=== PATIENT | male | born 1935 | race Caucasian/White ===

== ENCOUNTER 2016-09-22 14:20 | Emergency (ER) | payer MEDICARE, BC ==
[2016-09-22 14:40] LABS: BASOPHIL# 0.1 X 10^3uL (0.0-0.1); BASOPHILS 0.7 % (0.0-2.0); EOSINOPHILS 2.8 % (0.0-6.0); EOSINOPHILS# 0.3 X 10^3uL (0.0-0.4); HEMATOCRIT 58.7 % (42.0-54.0); HEMOGLOBIN 19.6 g/dL (14.0-18.0); LYMPHOCYTES 38.9 % (20.0-40.0); MEAN CELL VOLUME 90.3 fL (80.0-100.0); MEAN CORPUS. HGB CONCENTRATION 33.5 g/dL (32.0-36.0); MEAN CORPUSCULAR HEMOGLOBIN 30.2 pg (29.0-35.0); MEAN PLATELET VOLUME 9.5 fL (7.4-10.4); MONOCYTES 7.4 % (2.0-10.0); MONOCYTES# 0.8 X 10^3uL (0.2-1.0); NEUTROPHILS 50.2 % (54.0-75.0); PLATELET COUNT 265 X 10^3uL (130-440); WHITE BLOOD COUNT 10.3 X 10^3uL (3.9-10.7)
[2016-09-22 14:50] LABS: CHLORIDE 107 mmol/L (98-107); CREATININE 1.6 mg/dL (0.7-1.3); POTASSIUM 4.9 mmol/L (3.5-5.1); SODIUM 142 mmol/L (137-145)
[2016-09-22] MEDS ORDERED: FENTANYL 100 MCG/2 ML VIAL ONE (14:58)
[2016-09-22] MEDS ORDERED: LORazepam 2 MG/ML INJ ONE (14:58)
[2016-09-22 15:03] LABS: TROPONIN I 0.023 ng/mL (0.00-0.034)
[2016-09-22 15:04] LABS: GLUCOSE 324 mg/dL (70-100)
[2016-09-22] MEDS ORDERED: FUROSEMIDE 20 MG/2 ML VIAL ONE (15:05)
[2016-09-22 15:06] LABS: ARTERIAL BLOOD GAS PCO2 46.8 mmHg (35-45)
--- NOTE | 2016-09-22 15:07 | RADIOLOGY REPORT ---
HISTORY: Intubation. Shortness of breath. COMPARISON: None. FINDINGS: 1 view of the chest obtained. An endotracheal tube is well-positioned. Pacemaker leads are intact an d terminate in the right atrium and right ventricle. The heart size is within normal limits. There is diffuse hazy infiltrate throughout both lungs. No pneumothorax or pleural effusion is demonstrated. There appears to be a small calcified granuloma in the right lower lobe. The chest wall appears intac t. IMPRESSION: 1. Well-positioned endotracheal tube. 2. Diffuse bilateral pneumonitis, which may be infectious or inflammatory. This could also be caused by pulmonary edema, though there are no pleural effusions. Final Electronic Signature: This report was electronically signed by Tom Becerril MD on 09/22/2016 3:05 PM. [email or web address] /
[2016-09-22 15:08] LABS: BLOOD UREA NITROGEN 26 mg/dL (9-20)
--- NOTE | 2016-09-22 15:39 | ER NURSING DOCUMENTATION ---
Nurse's Notes [facility] Name:Santiago Donato Age:81 yrs Sex:Male :1935 Arrival Date:09/22/2016 Time:14:20 BedTrauma-A Private MD:Hugo García Diagnosis:Acute Respiratory Distress/Insufficiency Presentation: 09/22 14:21 Presenting complaint: EMS states: pt was found gasping for air with a pulse ox of 26%. st 14:21 Transition of care: Home. st 14:21 Method Of Arrival: EMS: 410 st 14:21 Care prior to arrival: CPAP. Compressions began at 14:35. st 14:22 Acuity: MEL 1 st Triage Assessment: 14:21 General: Appears pt struggling to breath fighting the CPAP.. st 14:21 Respiratory: the patient has severe shortness of breath. st 15:01 General: skin turning blue pulse OX dropping no pulse found.. st Historical: - Allergies: No known drug Allergies; meds inported pt un able to comunicate; - Home Meds: 1. Insulin: Novolog Sub-Q 2. carvedilol oral 3. Levemir subcutaneous 4. Aspirin Oral 5. Benicar oral 6. Hydralazine Oral 7. atorvastatin oral 8. Novolog Sub-Q 9. amlodipine oral 10. Furosemide Oral 11. Temazepam Oral 12. 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 Cardiac rhythm is PEA. st 14:40 CPR assessment: intubated, pulses have returned. st 14:40 General: helicopter called . st 15:04 General: family being contacted.. st 15:10 General: pt resting quietly on the vent.. st 15:25 Respiratory: Breath sounds with crackles air moving. st Vital Signs: 14:30 st 14:31 BP 149 / 82 (auto/); st 14:32 Pulse 102 MON; Resp 6; Pulse Ox 51% ; st 14:40 st 14:47 BP 219 / 121 (auto/); st 14:47 Pulse 109 MON; Resp 25; Pulse Ox 91% on ETT vent; st 14:50 st 14:59 BP 120 / 75 (auto/); st 15:02 Pulse 96 MON; Resp 12; Pulse Ox 89% ; st 15:26 Weight 80 kg; st 14:[address] 14:[address] 14:[address] 15:[address] ED Course: 14:21 Patient arrived in ED. ama 14:21 Hugo García MD is Private Physician. ama 14:[address] 14:28 Inserted peripheral IV: 20 gauge in right antecubital area. st 14:29 Inserted peripheral IV: 20 gauge in left antecubital area and blood collected. st 14:30 Intubation with 8.0 mm ETT. kr 14:30 Assist Provider Assist provider with intubation with 8.0 mm ETT. via oral route. Set up st intubation tray. Intubated by Giovanni Summers MD Placement verified by CXR, auscultating bilateral breath sounds. 14:31 EKG done per protocol. Performed by ED Staff. Shown to ED physician. st 14:35 Bisi Waggoner, RN is Primary Nurse. st 14:47 Giovanni Summers MD is Attending Physician. sc 14:[address] 14:52 ABG drawn. by RT. NGT inserted [address] 14:59 EKG attached lb 15:00 EKG done. (by ED staff). lb 15:11 Valuables sent with patient Patient has correct armband on for positive identification. st Placed in gown. 15:31 Assist ventilation with Ambu bag. kr 15:33 ABG's drawn from right radial artery, Ramon's test done and positive, direct pressure kr held for 5 minutes, no bleeding noted, pressure bandage applied, specimen sent. Intubation performed by: Giovanni Summers MD Ventilated with 100% BVM prior to procedure. O2 saturation prior to procedure was 51 %. Administered Medications: 14:35 Drug: EPINEPHrine 1:10,000 1 mg; Route: IVP; Site: right antecubital; st 15:23 Follow up: Response: PULSES BACK st 14:49 Drug: fentaNYL (PF) 50 mcg; Route: IVP; Site: left hand; st 15:23 Follow up: Response: No adverse reaction st 14:50 Drug: Ativan 1 mg; Route: IVP; Site: left hand; st 15:23 Follow up: Response: No adverse reaction st 14:50 Drug: Rocuronium 80 mg; Route: IVP; Site: left wrist; st 15:24 Follow up: Response: PT SEDATED. st 14:52 Drug: Lasix 20 mg; Route: IVP; Site: right antecubital; st 15:23 Follow up: Response: No adverse reaction st Output: 15:24 Urine: 30ml (Osuna); Total: 30ml. st Outcome: 15:11 ER care complete, transfer ordered by ar 15:18 Transferred: Patient will be transferred to: [facility]. Patient's st face sheet was faxed to accepting facility. Face Sheet included patient's name, address, age, gender, contact information and insurance information. Patient will be transported by: [facility] Helicopter. Nurse and Physician Charting and Notes were sent to Accepting Facility. All tests and/or procedures with results, if applicable, were sent to accepting facility. 15:18 Report given to Given to flight crew. 15:33 Transferred: st 15:33 Condition: Guarded 15:33 Report given to [place] [facility] 15:33 Instructed on need to admit 15:39 Patient [address] the ED. st Signatures: Bisi Waggoner, RN Giovanni Lomas MD MD sc Averdick, Andrew, Reg Reg Neena Bruce Lynda lb
--- NOTE | 2016-09-22 15:39 | ER PHYSICIAN DOCUMENTATION ---
Physician Documentation [facility] Name:Santiago Donato Age:81 yrs Sex:Male :1935 Arrival Date:09/22/2016 Time:14:20 BedTrauma-A Private MD:Hugo García ED, Scott Disposition: 09/22 15:10 Critical Care:. sc Disposition: 09/22/16 15:11 Transfer ordered to [facility]. Diagnosis is Acute Respiratory Distress/Insufficiency. - Reason for transfer: Higher level of care. - Accepting physician is Dr. Rudolph. - Condition is Critical. - Problem is new. - Symptoms have improved. COBRA Form completed? Yes Transfer - Mode of Transportation Helicopter HPI: 14:55 This 81 yrs old Male presents to ER via EMS with complaints of Respiratory sc Distress. 14:55 The patient has shortness of breath at rest. Onset: The symptom(s)/episode sc began/occurred at an unknown time. Associated signs and symptoms: Pertinent positives:. Unable to obtain HPI due to baseline dementia, obtunded state, patient distress, patient's speech is incomprehensible. Historical: - Allergies: No known drug Allergies; meds inported pt un able to comunicate; - Home Meds: 1. Insulin: Novolog Sub-Q 2. carvedilol oral 3. Levemir subcutaneous 4. Aspirin Oral 5. Benicar oral 6. Hydralazine Oral 7. atorvastatin oral 8. Novolog Sub-Q 9. amlodipine oral 10. Furosemide Oral 11. Temazepam Oral 12. 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 sc 14:56 Unable to obtain ROS due to baseline dementia, obtunded state, patient distress. Exam: 14:56 Constitutional: The patient appears in obvious distress, severely distressed. sc 14:56 Head/face: Exam is negative for acute changes. 14:56 Eyes: Pupils: equal, round, and reactive to light and accomodation. 14:56 Cardiovascular: Rate: tachycardic, Rhythm: regular, Pulses: Pulses are 2+ in right radial artery and left radial artery. 14:56 Respiratory: severe respiratory distress is noted, Respirations: accessory muscle usage, grunting, shallow respirations, tachypnea, Breath sounds: rales, that are severe, are located in both bases. 14:56 Abdomen/GI: Inspection: abdomen appears normal. 14:56 Back: Exam negative for acute changes. 14:56 Musculoskeletal/extremity: Exam is negative for acute changes. 14:56 Skin: Appearance: Color: pale, diaphoresis is noted. 14:56 Neuro: Orientation: unable to test, the patient is intubated, Mentation: confused, fighting O2 mask on arrival. 14:56 Unable to obtain exam due to patient distress. Vital Signs: 14:30 st 14:31 BP 149 / 82 (auto/); st 14:32 Pulse 102 MON; Resp 6; Pulse Ox 51% ; st 14:40 st 14:47 BP 219 / 121 (auto/); st 14:47 Pulse 109 MON; Resp 25; Pulse Ox 91% on ETT vent; st 14:50 st 14:59 BP 120 / 75 (auto/); st 15:02 Pulse 96 MON; Resp 12; Pulse Ox 89% ; st 15:26 Weight 80 kg; st 14:[address] 14:[address] 14:[address] 15:[address] Procedures: 15:05 CPR: See CPR flow sheet. Initial patient assessment: unresponsive, cyanotic, The sc presenting cardiac rhythm is PEA. the patient was intubated prior to arrival, Meds given: Epinephrine X 1, Pacing: the patient was paced with patient with pacer. Intubation: Ventilated with 100% NRB prior to procedure. O2 saturation prior to procedure was 30 %. Intubated orally using # 4 Muñoz blade with 8.0 mm ETT. Successful on second attempt. Ventilated with Ambu bag. ventilator. Cricoid pressure applied during procedure. Tube secured with ETT parks Placement verified by CXR, CO2 detector with (+) color change, auscultating bilateral breath sounds, O2 saturation after procedure was 90 %. MDM: 14:47 Patient medically screened. sc 14:59 EKG attached lb 15:09 Differential diagnosis: CHF exacerbation, Myocardial Infarction pulmonary edema. sc Antibiotic administration: Not indicated. Data reviewed: vital signs, nurses notes, old medical records, lab test result(s), EKG, radiologic studies, plain films, and as a result, I will *Transfer Patient. Data interpreted: Pulse oximetry: on ventilator. ECG:. Response to treatment: the patient's symptoms have mildly improved after treatment. 15:11 Physician consultation: Dr. Rudolph was called at 15:12, was contacted at 15:12, ut regarding patient's condition, after a discussion of the case, a recommendation for transfer for higher level of care is made. 09/22 14:48 Order name: CBC AUTO DIF, MDIF/RMOR IF IND EDIA 09/22 15:06 Order name: BASIC METABOLIC PANEL; Complete Time: 15:36 EDMS 09/22 15:36 Interpretation: Abnormal: GLUCOSE 324; CREATININE 1.6. ut 09/22 15:06 Order name: BNP,NT-PRO; Complete Time: 15:36 EDMS 09/22 15:36 Interpretation: Abnormal: BNP,NT-PRO 957. ut 09/22 15:06 Order name: TROPONIN I; Complete Time: 15:36 EDMS 09/22 15:36 Interpretation: Normal: Normal. ut 09/22 15:07 Order name: ARTERIAL BLOOD GAS; Complete Time: 15:13 EDMS / 15:36 Interpretation: Abnormal: ARTERIAL BLOOD GAS, pH ONLY 7.08. ut 09/22 15:31 Order name: DDIMER; Complete Time: 15:36 EDMS 09/22 15:36 Interpretation: Abnormal. ut 09/22 15:08 Order name: CHEST; SINGLE VIEW [address]; Complete Time: 15:13 EDIA / 15:36 Interpretation: Abnormal: Abnormal. ut 09/22 14:48 Order name: EKG - 12 Lead; Complete Time: 15:00 st 09/22 14:51 Order name: Osuna; Complete Time: 14:59 st 09/22 14:51 Order name: NG Tube; Complete Time: 15:00 st EC:09 Rate is 120 beats/min. Rhythm is regular with Left bundle branch block. QRS [place] is ut Normal. [place] interval is normal. QRS interval is prolonged. No Q waves. T waves are Normal. No ST changes noted. Clinical impression: Abnormal EKG without significant change. Interpreted by me. Reviewed by me. Dispensed Medications: 14:35 Drug: EPINEPHrine 1:10,000 1 mg; Route: IVP; Site: right antecubital; st 15:23 Follow up: Response: PULSES BACK st 14:49 Drug: fentaNYL (PF) 50 mcg; Route: IVP; Site: left hand; st 15:23 Follow up: Response: No adverse reaction st 14:50 Drug: Ativan 1 mg; Route: IVP; Site: left hand; st 15:23 Follow up: Response: No adverse reaction st 14:50 Drug: Rocuronium 80 mg; Route: IVP; Site: left wrist; st 15:24 Follow up: Response: PT SEDATED. st 14:52 Drug: Lasix 20 mg; Route: IVP; Site: right antecubital; st 15:23 Follow up: Response: No adverse reaction st Critical care time excluding procedures: 15:10 Critical care time: Bedside Care: 45 minutes, Consultation: 15 minutes. Total time: 60 sc minutes Signatures: Bisi Waggoner RN RN st Chew, Scott, MD MD sc Bollock, Lynda lb
== END 2016-09-22 15:39 | disposition short-term general hospital (02) ==
LOC: ER 14:20
DX: J80 Acute respiratory distress syndrome (principal); R00.0 Tachycardia, unspecified; R09.89 Other specified symptoms and signs involving the circulatory and respiratory systems; R61 Generalized hyperhidrosis; R41.0 Disorientation, unspecified; F03.90 Unspecified dementia, unspecified severity, without behavioral disturbance, psychotic disturbance, mood disturbance, and anxiety; I44.7 Left bundle-branch block, unspecified; R79.1 Abnormal coagulation profile; E11.65 Type 2 diabetes mellitus with hyperglycemia; N18.3 Chronic kidney disease, stage 3 (moderate); I10 Essential (primary) hypertension; Z79.4 Long term (current) use of insulin; Z79.899 Other long term (current) drug therapy; Z95.0 Presence of cardiac pacemaker
CPT/HCPCS: 31500; 43753; 71010; 80048; 82803; 83880; 84484; 85025; 85379; 92950; 93005; 96374; 96375; 99291; A0420; A0425; A0427; J1940; J2060; J3010

== ENCOUNTER 2016-10-08 13:48 | Inpatient (IN) | payer MEDICARE, BC ==
[2016-10-08] MEDS ORDERED: MAGNESIUM HYDROXIDE 30 ML UDC PO PRN (15:49)
[2016-10-08] MEDS ORDERED: GLYCERIN ADULT 2 GM SUPP.RECT PR PRN (15:49)
[2016-10-08] MEDS ORDERED: POLYETHYLENE GLYCOL 3350 17 GM POWD.PACK PO PRN (15:49)
[2016-10-08] MEDS ORDERED: ACETAMINOPHEN 325 MG TABLET PO PRN (15:49)
[2016-10-08] MEDS ORDERED: HOME MEDICATION LIST NEEDED 1 EA EACH MC ONE (15:49)
[2016-10-08] MEDS ORDERED: GLYCERIN ADULT 2 GM SUPP.RECT RECTAL PRN (18:24)
[2016-10-08] MEDS ORDERED: DEXTROSE 50% WATER 25 GM/50 ML SYR IV PRN (19:25)
[2016-10-08] MEDS ORDERED: traMADol HCL 50 MG TABLET PO PRN (19:26)
[2016-10-08] MEDS ORDERED: INSULIN GLARGINE,HUM.REC.ANLOG 100 UNITS/ML ML SUBCUT SCH ×2 (21:00→22:14)
[2016-10-08] MEDS ORDERED: hydrALAZINE HCL 20 MG/ML VIAL PO SCH (21:00)
[2016-10-08] MEDS ORDERED: cloNIDine HCL 0.1 MG TABLET PO SCH (21:00)
[2016-10-08] MEDS: CARVEDILOL 12.5 MG TABLET PO SCH (22:24)
[2016-10-08] MEDS: ATORVASTATIN CALCIUIM 40 MG TABLET PO SCH (22:24)
[2016-10-08] MEDS: INSULIN LISPRO 100 UNIT/ML ML SUBCUT SCH (22:25)
[2016-10-08 23:31] LABS: URINE MUCUS NONE SEEN (Up to 25%); URINE SQUAMOUS EPITHELIAL CELL NONE SEEN (<= 15/hpf)
[2016-10-08 23:33] LABS: URINE APPEARANCE CLEAR; URINE BILIRUBIN NEGATIVE (NEGATIVE); URINE BLOOD 10 Ery/uL (1+) (NEGATIVE); URINE COLOR YELLOW; URINE GLUCOSE 500mg/dL (2+) (NEGATIVE); URINE KETONE NEGATIVE (NEGATIVE); URINE LEUKOCYTE ESTERASE NEGATIVE (NEGATIVE); URINE NITRITE NEGATIVE (NEGATIVE); URINE PROTEIN 100mg/dL (2+) (NEG - TRACE); URINE RBC 0-5/hpf (0-5/hpf); URINE SPECIFIC GRAVITY 1.015 (0.001-1.035); URINE UROBILINOGEN 0.2mg/dL (Normal) (NEG-1mg/dL)
[2016-10-08 23:34] LABS: URINE BACTERIA NONE SEEN (<10/hpf); URINE WBC 0-4/hpf (0-4/hpf)
[2016-10-09] MEDS ORDERED: ONDANSETRON ODT 8 MG TAB.RAPDIS PO ONE (00:01)
[2016-10-09] MEDS ORDERED: ONDANSETRON ODT 4 MG TAB.RAPDIS ONE (00:17)
[2016-10-09] MEDS ORDERED: ONDANSETRON HCL 4 MG/2 ML VIAL IV PRN (00:20)
[2016-10-09] MEDS ORDERED: ONDANSETRON HCL 4 MG/2 ML VIAL ONE (00:24)
[2016-10-09 06:41] LABS: BASOPHIL# 0.2 X 10^3uL (0.0-0.1); BASOPHILS 1.7 % (0.0-2.0); EOSINOPHILS 0.4 % (0.0-6.0); HEMATOCRIT 26.9 % (42.0-54.0); HEMOGLOBIN 9.1 g/dL (14.0-18.0); LYMPHOCYTES 6.3 % (20.0-40.0); LYMPHOCYTES# 0.6 X 10^3uL (0.8-3.8); MEAN CELL VOLUME 86.7 fL (80.0-100.0); MEAN CORPUS. HGB CONCENTRATION 33.7 g/dL (32.0-36.0); MEAN CORPUSCULAR HEMOGLOBIN 29.2 pg (29.0-35.0); MEAN PLATELET VOLUME 9.5 fL (7.4-10.4); MONOCYTES 9.3 % (2.0-10.0); MONOCYTES# 0.8 X 10^3uL (0.2-1.0); NEUTROPHILS 82.3 % (54.0-75.0); NEUTROPHILS# 7.4 X 10^3uL (2.6-6.7); PLATELET COUNT 301 X 10^3uL (130-440); RED CELL DISTRIBUTION WIDTH 12.4 % (11.5-14.5)
[2016-10-09] MEDS: INSULIN LISPRO 100 UNIT/ML ML SUBCUT SCH ×4 (06:47→21:41)
[2016-10-09 06:53] LABS: ALKALINE PHOSPHATASE 96 U/L (38-126); ALT 41 U/L (21-72); AST 36 U/L (17-59); BILIRUBIN, TOTAL 0.7 mg/dL (0.2-1.3); BLOOD UREA NITROGEN 40 mg/dL (9-20); CALCIUM 9.7 mg/dL (8.4-10.2); CHLORIDE 103 mmol/L (98-107); POTASSIUM 4.6 mmol/L (3.5-5.1); SODIUM 133 mmol/L (137-145); TOTAL PROTEIN 6.1 g/dL (6.3-8.2)
[2016-10-09 06:58] LABS: GLUCOSE 222 mg/dL (70-100)
--- NOTE | 2016-10-09 07:49 | HISTORY & PHYSICAL ---
DATE OF ADMISSION: 10/08/16 ATTENDING PHYSICIAN: Yarely Draper MD HISTORY OF PRESENT ILLNESS: This patient came through our hospital on the date of 09/22/16 with respiratory distress. This was severe requiring intubation for pulmonary edema. He actually endured a brief episode of PEA and survived CPR and a single dose of epinephrine. The etiology of his pulmonary edema is though to be his very labile blood pressure. He was diuresed, extubated, monitored and has done relatively well. He is now being admitted to our swing bed program for strengthening and further monitoring. PAST MEDICAL HISTORY 1. Hematuria. 2. Prostate cancer. 3. Carotid stenosis. 4. Complete heart block. 5. Chronic renal insufficiency with a creatinine of 1.4 at baseline. 6. Type 2 diabetes. 7. Hyperlipidemia. 8. Hypertension. 9. Insomnia. 10. Restless legs. 11. Obstructive sleep apnea requiring CPAP. PAST SURGICAL HISTORY 1. Transurethral resection of the prostate. SOCIAL HISTORY: He quit smoking many years ago. He typically lives a lone. He has daughters involved in his life. He occasionally drinks alcohol but not every night. FAMILY HISTORY: Adopted so family history is not known. MEDICATIONS AT ADMISSION Amlodipine 10 mg p.o. daily. Olmesartan 20 mg p.o. daily. Long-acting insulin 24 units at h.s. Short-acting insulin at meals, variable dosing. Hydralazine 25 mg p.o. b.i.d. Inspra 25 mg p.o. daily. CPAP. Clonidine 0.3 mg patches to be changed once weekly. Vitamin D 1000 units daily. Chlorthalidone 12.5 mg p.o. daily. Carvedilol 25 mg p.o. daily. Atorvastatin 40 mg p.o. daily. Aspirin of an 81 mg enteric coated aspirin daily. Allopurinol 200 mg p.o. daily. ALLERGIES: No known drug allergies. CODE STATUS: We did discuss his code status, and he will remain a full code. PHYSICAL EXAMINATION VITAL SIGNS: Afebrile with a blood pressure of 132/81, pulse 63 requiring 3 liters of oxygen for a pulse oxygenation of 92%. GENERAL: He is a pleasant older gentleman in no acute distress. He is very articulate. He does not remember some of the events surrounding his resuscitation not surprisingly, but his daughters say that he is very much himself. He is complaining of anterior chest pain related to CPR. Tylenol has not been serving him very well down at [facility]. CARDIAC: Regular rate and rhythm. CHEST: Remarkable for a few rales at the bases. ABDOMEN: Soft and nontender. EXTREMITIES: Without edema. Negative Homans sign. ASSESSMENT AND PLAN 1. Recent cardiac arrest and respiratory failure, from which he has recovered markedly well. Control of his blood pressure will be very important, and will be monitored closely and treated accordingly. 2. Chronic renal insufficiency. We will monitor labs. His creatinine never seemed to get any higher than 1.6 down at [facility]. 3. Type 2 diabetes. We will continue the program recommended by [facility] and follow blood sugars, adjusting as needed. 4. Complete heart block with pacemaker. 5. Resuscitation status. Full code. MTDD
--- NOTE | 2016-10-09 08:40 | PROGRESS NOTE: IM APSO ---
Assessment and Plan - Date of Encounter Date of Encounter: 10/09/16 (1) Hypertension Status: Chronic Assessment and plan: Difficult to control but presently doing fine, will continue present regimen. Current Visit: Yes (2) History of pulmonary edema Status: Resolved Assessment and plan: It is assumed his resp'y failure was r/t pulmonary edema d/t severe HTN; no sign of recurrence. Pt would like O2 at home at d/c if he at all qualifies. Current Visit: Yes (3) DM2 (diabetes mellitus, type 2) Status: Chronic Assessment and plan: Glc elevated since arrival, but he is just getting settled. I incr Lantus a little, monitor and adjust routine meds as indicated. Current Visit: Yes (4) Nausea Status: Acute Assessment and plan: Intermittent nausea for unclear reasons, wanted stronger pain med for his sternal pain from CPR, but maybe contrib. Can take Zofran with Tramadol, will make sure he is on PPI. Current Visit: Yes - Time Spent With Patient Total time spent with greater than 50% in coordination of care (as documented) at patient's floor/unit and/or counseling patient: IM: PN Subjective General: fatigue Cardiovascular: chest pain (from CPR) Respiratory: cough (minimal) Gastrointestinal: nausea (at times, was happening at MCR also, unclear if from meds or new tramadol) Neurological: no headache IM: PN Objective Exam - I&O/Vital Signs I&O: Intake & Output 10/08/16 10/09/16 10/09/16 21:59 05:59 13:59 Intake Total 975 Output Total 525 Balance 450 Weight 81 kg Intake: Oral 975 Output: Urine 525 Other: Urine Appearance Clear Clear Urine Color Yellow Yellow Voiding Method Toilet Toilet # Voids 3 Vital Signs: Last Vital Signs Temp 37.2 C 10/09/16 05:52 Pulse 60 10/09/16 02:35 Resp 22 10/09/16 05:52 BP 118/50 10/09/16 05:52 Pulse Ox 93 10/09/16 05:52 Oxygen Flow Rate 2 Oxygen Delivery Method Nasal Cannula - Constitutional General appearance: Present: average body habitus - ENT ENT exam: Present: mucous membranes moist - Respiratory Respiratory exam: Present: chest wall tenderness (anteriorly), clear - Cardiovascular Cardiovascular exam: Present: RRR - GI/Abdominal GI/Abdominal exam: Present: distended, soft - Extremities Exam Extremities exam: Absent: edema - Neurological Exam Neurological exam: Present: oriented X3 - Psychiatric Psychiatric exam: Present: normal affect - Skin Skin exam: Present: pallor - Lab Labs: Laboratory Last Values WBC 9.0 X 10^3uL (3.9-10.7) 10/09/16 06:00 RBC 3.10 X 10^6uL (4.20-6.10) L 10/09/16 06:00 Hgb 9.1 g/dL (14.0-18.0) L 10/09/16 06:00 Hct 26.9 % (42.0-54.0) L 10/09/16 06:00 MCV 86.7 fL (80.0-100.0) 10/09/16 06:00 MCH 29.2 pg (29.0-35.0) 10/09/16 06:00 MCHC 33.7 g/dL (32.0-36.0) 10/09/16 06:00 RDW 12.4 % (11.5-14.5) 10/09/16 06:00 Plt Count 301 X 10^3uL (130-440) 10/09/16 06:00 MPV 9.5 fL (7.4-10.4) 10/09/16 06:00 Neutrophils % 82.3 % (54.0-75.0) H 10/09/16 06:00 Lymphocytes % 6.3 % (20.0-40.0) L 10/09/16 06:00 Eosinophils % 0.4 % (0.0-6.0) 10/09/16 06:00 Basophils % 1.7 % (0.0-2.0) 10/09/16 06:00 Neutrophils # 7.4 X 10^3uL (2.6-6.7) H 10/09/16 06:00 Lymphocytes # 0.6 X 10^3uL (0.8-3.8) L 10/09/16 06:00 Monocytes 9.3 % (2.0-10.0) 10/09/16 06:00 Monocytes # 0.8 X 10^3uL (0.2-1.0) 10/09/16 06:00 Eosinophils # 0.0 X 10^3uL (0.0-0.4) 10/09/16 06:00 Basophils # 0.2 X 10^3uL (0.0-0.1) H 10/09/16 06:00 Sodium 133 mmol/L (137-145) L D 10/09/16 06:00 Potassium 4.6 mmol/L (3.5-5.1) 10/09/16 06:00 Chloride 103 mmol/L (98-107) 10/09/16 06:00 Carbon Dioxide 25 mmol/L (22-30) 10/09/16 06:00 BUN 40 mg/dL (9-20) H D 10/09/16 06:00 Creatinine 1.7 mg/dL (0.7-1.3) H 10/09/16 06:00 GFR Calculation Not Reportable 10/09/16 06:00 Glucose 222 mg/dL (70-100) H 10/09/16 06:00 Calcium 9.7 mg/dL (8.4-10.2) 10/09/16 06:00 Total Bilirubin 0.7 mg/dL (0.2-1.3) 10/09/16 06:00 AST 36 U/L (17-59) 10/09/16 06:00 ALT 41 U/L (21-72) 10/09/16 06:00 Alkaline Phosphatase 96 U/L (38-126) 10/09/16 06:00 Total Protein 6.1 g/dL (6.3-8.2) L 10/09/16 06:00 Albumin 3.0 g/dL (3.5-5.0) L 10/09/16 06:00 Albumin/Globulin Ratio 1.0 10/09/16 06:00 Urine Color Yellow 10/08/16 22:40 Urine Appearance Clear 10/08/16 22:40 Urine pH 6.0 (5-7) 10/08/16 22:40 Ur Specific [place] 1.015 (0.001-1.035) 10/08/16 22:40 Urine Protein 100mg/dl (2+) (NEG - TRACE) A 10/08/16 22:40 Urine Ketones Negative (NEGATIVE) 10/08/16 22:40 Urine Blood 10 alejandro/ul (1+) (NEGATIVE) A 10/08/16 22:40 Urine Nitrate Negative (NEGATIVE) 10/08/16 22:40 Urine Bilirubin Negative (NEGATIVE) 10/08/16 22:40 Urine Urobilinogen 0.2mg/dl (normal) (NEG-1mg/dL) 10/08/16 22:40 Ur Leukocyte Esterase Negative (NEGATIVE) 10/08/16 22:40 Urine RBC 0-5/hpf (0-5/hpf) 10/08/16 22:40 Urine WBC 0-4/hpf (0-4/hpf) 10/08/16 22:40 Ur Squamous Epith Cells None seen (<= 15/hpf) 10/08/16 22:40 Urine Bacteria None seen (<10/hpf) 10/08/16 22:40 Urine Mucus None seen (Up to 25%) 10/08/16 22:40 Urine Glucose 500mg/dl (2+) (NEGATIVE) A 10/08/16 22:40 Quality Questions - VTE Prophylaxis Assessment VTE Present on Admission?: No Patient at risk for venous thromboembolism?: Yes VTE Risk Level: Moderate Risk Pharmaceutical VTE prophylaxis contraindication reason: contraindicated (recent CPR and low hct) Mechanical VTE prophylaxis contraindication reason: N/A- VTE prophylaxsis ordered
[2016-10-09] MEDS: ALLOPURINOL 100 MG TAB PO SCH (08:56)
[2016-10-09] MEDS: CHOLECALCIFEROL 1,000 UNIT CAPSULE PO SCH (08:56)
[2016-10-09] MEDS ORDERED: AMLODIPINE BESYLATE 5 MG TABLET PO SCH (09:00)
[2016-10-09] MEDS ORDERED: OLMESARTAN 20 MG TABLET PO SCH ×2 (09:00→22:01)
[2016-10-09] MEDS: CARVEDILOL 12.5 MG TABLET PO SCH ×2 (09:01→17:15)
[2016-10-09] MEDS: CHLORTHALIDONE 12.5 MG PO SCH (09:01)
[2016-10-09] MEDS: PANTOPRAZOLE 40 MG TABLET PO SCH ×2 (11:47→16:50)
[2016-10-09] MEDS: INSULIN GLARGINE,HUM.REC.ANLOG 100 UNITS/ML ML SUBCUT SCH (21:30)
[2016-10-09] MEDS: ATORVASTATIN CALCIUIM 40 MG TABLET PO SCH (21:30)
[2016-10-10 06:27] LABS: BASOPHIL# 0.1 X 10^3uL (0.0-0.1); BASOPHILS 1.1 % (0.0-2.0); EOSINOPHILS 5.4 % (0.0-6.0); EOSINOPHILS# 0.3 X 10^3uL (0.0-0.4); HEMATOCRIT 26.6 % (42.0-54.0); HEMOGLOBIN 8.9 g/dL (14.0-18.0); LYMPHOCYTES 16.2 % (20.0-40.0); LYMPHOCYTES# 0.8 X 10^3uL (0.8-3.8); MEAN CELL VOLUME 87.6 fL (80.0-100.0); MEAN CORPUS. HGB CONCENTRATION 33.6 g/dL (32.0-36.0); MEAN CORPUSCULAR HEMOGLOBIN 29.4 pg (29.0-35.0); MEAN PLATELET VOLUME 8.5 fL (7.4-10.4); MONOCYTES# 0.8 X 10^3uL (0.2-1.0); NEUTROPHILS 62.1 % (54.0-75.0); NEUTROPHILS# 3.2 X 10^3uL (2.6-6.7); PLATELET COUNT 333 X 10^3uL (130-440); RED BLOOD COUNT 3.04 X 10^6uL (4.20-6.10); RED CELL DISTRIBUTION WIDTH 12.8 % (11.5-14.5); WHITE BLOOD COUNT 5.2 X 10^3uL (3.9-10.7)
[2016-10-10 06:41] LABS: BLOOD UREA NITROGEN 45 mg/dL (9-20); CALCIUM 9.5 mg/dL (8.4-10.2); CHLORIDE 104 mmol/L (98-107); GLUCOSE 148 mg/dL (70-100); POTASSIUM 4.2 mmol/L (3.5-5.1); SODIUM 135 mmol/L (137-145)
[2016-10-10 06:42] LABS: MONOCYTES 15.2 % (2.0-10.0)
[2016-10-10] MEDS: PANTOPRAZOLE 40 MG TABLET PO SCH ×2 (06:46→16:37)
[2016-10-10] MEDS: INSULIN LISPRO 100 UNIT/ML ML SUBCUT SCH ×4 (06:50→22:11)
[2016-10-10] MEDS: CARVEDILOL 12.5 MG TABLET PO SCH ×2 (07:57→17:04)
[2016-10-10] MEDS: ALLOPURINOL 100 MG TAB PO SCH (09:39)
[2016-10-10] MEDS: CHOLECALCIFEROL 1,000 UNIT CAPSULE PO SCH (09:39)
[2016-10-10] MEDS: CHLORTHALIDONE 12.5 MG PO SCH (10:05)
[2016-10-10] MEDS: AMLODIPINE BESYLATE 5 MG TABLET PO SCH (10:19)
--- NOTE | 2016-10-10 13:11 | PROGRESS NOTE: IM APSO ---
Assessment and Plan - Date of Encounter Date of Encounter: 10/10/16 (1) Pulmonary edema Status: Acute Assessment and plan: Stable with no evidence of flare. Cardiology consult Current Visit: Yes (2) Hypertension Status: Chronic Assessment and plan: Labile, possible etiology for pulm edema Amlodipine, hydralazine, clonidine patch, chlorthalidione, carvedilol, inspra, olmesartan. Will try to taper off as many as possible. Cardiology consult. Current Visit: Yes (3) DM2 (diabetes mellitus, type 2) Status: Chronic Assessment and plan: Insulin Current Visit: Yes (4) CRF Status: Acute Assessment and plan: Stable Current Visit: Yes (5) Complete heart block with pacemaker Status: Acute Current Visit: Yes (6) Anemia Status: Acute Assessment and plan: Consider bld transfusion tomorrow Current Visit: Yes - Time Spent With Patient Total time spent with greater than 50% in coordination of care (as documented) at patient's floor/unit and/or counseling patient: IM: PN Subjective Cardiovascular: other (Sternal chest wall pain from CPR), no chest pain Respiratory: no cough Gastrointestinal: no nausea Musculoskeletal: other (generalized weakness improving with PT) Neurological: no headache IM: PN Objective Exam - I&O/Vital Signs I&O: Intake & Output 10/09/16 10/10/16 10/10/16 21:59 05:59 13:59 Intake Total 150 Output Total 400 225 Balance -400 -75 Intake: Oral 150 Output: Urine 400 225 Other: Urine Appearance Clear Clear Urine Color Yellow Straw Voiding Method Toilet Toilet # Voids 2 1 Vital Signs: Last Vital Signs Temp 36.8 C 10/10/16 06:48 Pulse 60 10/10/16 06:48 Resp 22 10/10/16 06:48 BP 110/47 10/10/16 06:48 Pulse Ox 93 10/10/16 06:48 Oxygen Flow Rate 2 Oxygen Delivery Method Nasal Cannula - Respiratory Respiratory exam: Present: chest wall tenderness (anteriorly), clear - Cardiovascular Cardiovascular exam: Present: RRR - GI/Abdominal GI/Abdominal exam: Present: soft. Absent: tenderness - Extremities Exam Extremities exam: Absent: edema - Lab Labs: Laboratory Last Values WBC 5.2 X 10^3uL (3.9-10.7) 10/10/16 06:20 RBC 3.04 X 10^6uL (4.20-6.10) L 10/10/16 06:20 Hgb 8.9 g/dL (14.0-18.0) L 10/10/16 06:20 Hct 26.6 % (42.0-54.0) L 10/10/16 06:20 MCV 87.6 fL (80.0-100.0) 10/10/16 06:20 MCH 29.4 pg (29.0-35.0) 10/10/16 06:20 MCHC 33.6 g/dL (32.0-36.0) 10/10/16 06:20 RDW 12.8 % (11.5-14.5) 10/10/16 06:20 Plt Count 333 X 10^3uL (130-440) 10/10/16 06:20 MPV 8.5 fL (7.4-10.4) 10/10/16 06:20 Neutrophils % 62.1 % (54.0-75.0) 10/10/16 06:20 Lymphocytes % 16.2 % (20.0-40.0) L 10/10/16 06:20 Eosinophils % 5.4 % (0.0-6.0) 10/10/16 06:20 Basophils % 1.1 % (0.0-2.0) 10/10/16 06:20 Neutrophils # 3.2 X 10^3uL (2.6-6.7) 10/10/16 06:20 Lymphocytes # 0.8 X 10^3uL (0.8-3.8) 10/10/16 06:20 Monocytes 15.2 % (2.0-10.0) H 10/10/16 06:20 Monocytes # 0.8 X 10^3uL (0.2-1.0) 10/10/16 06:20 Eosinophils # 0.3 X 10^3uL (0.0-0.4) 10/10/16 06:20 Basophils # 0.1 X 10^3uL (0.0-0.1) 10/10/16 06:20 Sodium 135 mmol/L (137-145) L 10/10/16 06:20 Potassium 4.2 mmol/L (3.5-5.1) 10/10/16 06:20 Chloride 104 mmol/L (98-107) 10/10/16 06:20 Carbon Dioxide 27 mmol/L (22-30) 10/10/16 06:20 BUN 45 mg/dL (9-20) H 10/10/16 06:20 Creatinine 1.9 mg/dL (0.7-1.3) H 10/10/16 06:20 GFR Calculation Not Reportable 10/10/16 06:20 Glucose 148 mg/dL (70-100) H 10/10/16 06:20 Calcium 9.5 mg/dL (8.4-10.2) 10/10/16 06:20 Total Bilirubin 0.7 mg/dL (0.2-1.3) 10/09/16 06:00 AST 36 U/L (17-59) 10/09/16 06:00 ALT 41 U/L (21-72) 10/09/16 06:00 Alkaline Phosphatase 96 U/L (38-126) 10/09/16 06:00 Total Protein 6.1 g/dL (6.3-8.2) L 10/09/16 06:00 Albumin 3.0 g/dL (3.5-5.0) L 10/09/16 06:00 Albumin/Globulin Ratio 1.0 10/09/16 06:00 Urine Color Yellow 10/08/16 22:40 Urine Appearance Clear 10/08/16 22:40 Urine pH 6.0 (5-7) 10/08/16 22:40 Ur Specific [place] 1.015 (0.001-1.035) 10/08/16 22:40 Urine Protein 100mg/dl (2+) (NEG - TRACE) A 10/08/16 22:40 Urine Ketones Negative (NEGATIVE) 10/08/16 22:40 Urine Blood 10 alejandro/ul (1+) (NEGATIVE) A 10/08/16 22:40 Urine Nitrate Negative (NEGATIVE) 10/08/16 22:40 Urine Bilirubin Negative (NEGATIVE) 10/08/16 22:40 Urine Urobilinogen 0.2mg/dl (normal) (NEG-1mg/dL) 10/08/16 22:40 Ur Leukocyte Esterase Negative (NEGATIVE) 10/08/16 22:40 Urine RBC 0-5/hpf (0-5/hpf) 10/08/16 22:40 Urine WBC 0-4/hpf (0-4/hpf) 10/08/16 22:40 Ur Squamous Epith Cells None seen (<= 15/hpf) 10/08/16 22:40 Urine Bacteria None seen (<10/hpf) 10/08/16 22:40 Urine Mucus None seen (Up to 25%) 10/08/16 22:40 Urine Glucose 500mg/dl (2+) (NEGATIVE) A 10/08/16 22:40
[2016-10-10] MEDS: ATORVASTATIN CALCIUIM 40 MG TABLET PO SCH (22:09)
[2016-10-10] MEDS: INSULIN GLARGINE,HUM.REC.ANLOG 100 UNITS/ML ML SUBCUT SCH (22:10)
[2016-10-11] MEDS: PANTOPRAZOLE 40 MG TABLET PO SCH ×2 (06:48→17:30)
[2016-10-11] MEDS: INSULIN LISPRO 100 UNIT/ML ML SUBCUT SCH ×4 (07:07→21:59)
[2016-10-11 07:14] LABS: EOSINOPHILS 5.8 % (0.0-6.0); EOSINOPHILS# 0.3 X 10^3uL (0.0-0.4); HEMATOCRIT 28.5 % (42.0-54.0); HEMOGLOBIN 9.3 g/dL (14.0-18.0); LYMPHOCYTES 16.6 % (20.0-40.0); LYMPHOCYTES# 0.8 X 10^3uL (0.8-3.8); MEAN CELL VOLUME 87.9 fL (80.0-100.0); MEAN CORPUS. HGB CONCENTRATION 32.5 g/dL (32.0-36.0); MEAN CORPUSCULAR HEMOGLOBIN 28.6 pg (29.0-35.0); MEAN PLATELET VOLUME 8.6 fL (7.4-10.4); MONOCYTES# 0.5 X 10^3uL (0.2-1.0); NEUTROPHILS 64.6 % (54.0-75.0); NEUTROPHILS# 2.9 X 10^3uL (2.6-6.7); PLATELET COUNT 369 X 10^3uL (130-440); RED BLOOD COUNT 3.25 X 10^6uL (4.20-6.10); RED CELL DISTRIBUTION WIDTH 12.4 % (11.5-14.5); WHITE BLOOD COUNT 4.5 X 10^3uL (3.9-10.7)
[2016-10-11 08:04] LABS: BLOOD UREA NITROGEN 36 mg/dL (9-20); CALCIUM 9.5 mg/dL (8.4-10.2); CHLORIDE 96 mmol/L (98-107); GLUCOSE 140 mg/dL (70-100); POTASSIUM 4.4 mmol/L (3.5-5.1); SODIUM 137 mmol/L (137-145)
--- NOTE | 2016-10-11 09:22 | PROGRESS NOTE: IM APSO ---
Assessment and Plan - Date of Encounter Date of Encounter: 10/11/16 (1) Pulmonary edema Status: Acute Assessment and plan: Stable with no evidence of flare. Cardiology consult Current Visit: Yes (2) Hypertension Status: Chronic Assessment and plan: Labile, possible etiology for pulm edema Amlodipine, carvedilol. Will try to taper off as many as possible. Stopped Hydralazine, inspra, clonidine patch, chlorthalidone, olmesartan. Good BP control currently. Cardiology consult. Current Visit: Yes (3) DM2 (diabetes mellitus, type 2) Status: Chronic Assessment and plan: Insulin Current Visit: Yes (4) CRF Status: Acute Assessment and plan: Stable Current Visit: Yes (5) Complete heart block with pacemaker Status: Acute Current Visit: Yes (6) Anemia Status: Acute Assessment and plan: No bld transfusion with rising H/H Current Visit: Yes - Time Spent With Patient Total time spent with greater than 50% in coordination of care (as documented) at patient's floor/unit and/or counseling patient: IM: PN Subjective Cardiovascular: other (Sternal chest wall pain from CPR), no chest pain Respiratory: no cough Gastrointestinal: no nausea Musculoskeletal: other (generalized weakness improving with PT) Neurological: no headache IM: PN Objective Exam - I&O/Vital Signs I&O: Intake & Output 10/10/16 10/11/16 10/11/16 21:59 05:59 13:59 Intake Total 1330 430 726 Output Total 775 850 Balance 555 -420 726 Intake: IV 726 Right Antecubital 726 Oral 1330 430 Output: Urine 775 850 Other: Urine Appearance Clear Urine Color Yellow Stool Size Moderate Stool Characteristics Formed Brown Voiding Method Toilet Urinal # Voids 3 # Bowel Movements 1 Vital Signs: Last Vital Signs Temp 37.0 C 10/11/16 06:27 Pulse 62 10/11/16 06:27 Resp 18 10/11/16 06:27 BP 130/58 10/11/16 06:27 Pulse Ox 94 10/11/16 06:27 Oxygen Flow Rate 2 Oxygen Delivery Method Nasal Cannula - Respiratory Respiratory exam: Present: chest wall tenderness (anteriorly), clear - Cardiovascular Cardiovascular exam: Present: RRR - GI/Abdominal GI/Abdominal exam: Present: soft. Absent: tenderness - Extremities Exam Extremities exam: Absent: edema - Lab Labs: Laboratory Last Values WBC 4.5 X 10^3uL (3.9-10.7) 10/11/16 07:05 RBC 3.25 X 10^6uL (4.20-6.10) L 10/11/16 07:05 Hgb 9.3 g/dL (14.0-18.0) L 10/11/16 07:05 Hct 28.5 % (42.0-54.0) L 10/11/16 07:05 MCV 87.9 fL (80.0-100.0) 10/11/16 07:05 MCH 28.6 pg (29.0-35.0) L 10/11/16 07:05 MCHC 32.5 g/dL (32.0-36.0) 10/11/16 07:05 RDW 12.4 % (11.5-14.5) 10/11/16 07:05 Plt Count 369 X 10^3uL (130-440) 10/11/16 07:05 MPV 8.6 fL (7.4-10.4) 10/11/16 07:05 Neutrophils % 64.6 % (54.0-75.0) 10/11/16 07:05 Lymphocytes % 16.6 % (20.0-40.0) L 10/11/16 07:05 Eosinophils % 5.8 % (0.0-6.0) 10/11/16 07:05 Basophils % 1.0 % (0.0-2.0) 10/11/16 07:05 Neutrophils # 2.9 X 10^3uL (2.6-6.7) 10/11/16 07:05 Lymphocytes # 0.8 X 10^3uL (0.8-3.8) 10/11/16 07:05 Monocytes 12.0 % (2.0-10.0) H 10/11/16 07:05 Monocytes # 0.5 X 10^3uL (0.2-1.0) 10/11/16 07:05 Eosinophils # 0.3 X 10^3uL (0.0-0.4) 10/11/16 07:05 Basophils # 0.0 X 10^3uL (0.0-0.1) 10/11/16 07:05 Sodium 137 mmol/L (137-145) 10/11/16 07:05 Potassium 4.4 mmol/L (3.5-5.1) 10/11/16 07:05 Chloride 96 mmol/L (98-107) L 10/11/16 07:05 Carbon Dioxide 27 mmol/L (22-30) 10/11/16 07:05 BUN 36 mg/dL (9-20) H 10/11/16 07:05 Creatinine 1.6 mg/dL (0.7-1.3) H 10/11/16 07:05 GFR Calculation Not Reportable 10/11/16 07:05 Glucose 140 mg/dL (70-100) H 10/11/16 07:05 Calcium 9.5 mg/dL (8.4-10.2) 10/11/16 07:05 Total Bilirubin 0.7 mg/dL (0.2-1.3) 10/09/16 06:00 AST 36 U/L (17-59) 10/09/16 06:00 ALT 41 U/L (21-72) 10/09/16 06:00 Alkaline Phosphatase 96 U/L (38-126) 10/09/16 06:00 Total Protein 6.1 g/dL (6.3-8.2) L 10/09/16 06:00 Albumin 3.0 g/dL (3.5-5.0) L 10/09/16 06:00 Albumin/Globulin Ratio 1.0 10/09/16 06:00 Urine Color Yellow 10/08/16 22:40 Urine Appearance Clear 10/08/16 22:40 Urine pH 6.0 (5-7) 10/08/16 22:40 Ur Specific [place] 1.015 (0.001-1.035) 10/08/16 22:40 Urine Protein 100mg/dl (2+) (NEG - TRACE) A 10/08/16 22:40 Urine Ketones Negative (NEGATIVE) 10/08/16 22:40 Urine Blood 10 alejandro/ul (1+) (NEGATIVE) A 10/08/16 22:40 Urine Nitrate Negative (NEGATIVE) 10/08/16 22:40 Urine Bilirubin Negative (NEGATIVE) 10/08/16 22:40 Urine Urobilinogen 0.2mg/dl (normal) (NEG-1mg/dL) 10/08/16 22:40 Ur Leukocyte Esterase Negative (NEGATIVE) 10/08/16 22:40 Urine RBC 0-5/hpf (0-5/hpf) 10/08/16 22:40 Urine WBC 0-4/hpf (0-4/hpf) 10/08/16 22:40 Ur Squamous Epith Cells None seen (<= 15/hpf) 10/08/16 22:40 Urine Bacteria None seen (<10/hpf) 10/08/16 22:40 Urine Mucus None seen (Up to 25%) 10/08/16 22:40 Urine Glucose 500mg/dl (2+) (NEGATIVE) A 10/08/16 22:40
[2016-10-11] MEDS: ALLOPURINOL 100 MG TAB PO SCH (09:31)
[2016-10-11] MEDS: CARVEDILOL 12.5 MG TABLET PO SCH ×2 (09:31→17:30)
[2016-10-11] MEDS: AMLODIPINE BESYLATE 5 MG TABLET PO SCH (09:31)
[2016-10-11] MEDS: CHOLECALCIFEROL 1,000 UNIT CAPSULE PO SCH (09:31)
[2016-10-11] MEDS: ATORVASTATIN CALCIUIM 40 MG TABLET PO SCH (21:59)
[2016-10-11] MEDS: INSULIN GLARGINE,HUM.REC.ANLOG 100 UNITS/ML ML SUBCUT SCH (21:59)
[2016-10-12] MEDS: PANTOPRAZOLE 40 MG TABLET PO SCH ×2 (06:19→16:43)
[2016-10-12] MEDS: INSULIN LISPRO 100 UNIT/ML ML SUBCUT SCH ×4 (06:24→22:28)
[2016-10-12] MEDS: AMLODIPINE BESYLATE 5 MG TABLET PO SCH (09:15)
[2016-10-12] MEDS: CHOLECALCIFEROL 1,000 UNIT CAPSULE PO SCH (09:16)
[2016-10-12] MEDS: ALLOPURINOL 100 MG TAB PO SCH (09:16)
[2016-10-12] MEDS: CARVEDILOL 12.5 MG TABLET PO SCH ×2 (09:16→17:49)
[2016-10-12] MEDS ORDERED: ZOLPIDEM TARTRATE 5 MG TABLET PO PRN (09:58)
--- NOTE | 2016-10-12 10:07 | PROGRESS NOTE: IM APSO ---
Assessment and Plan - Date of Encounter Date of Encounter: 10/12/16 (1) Pulmonary edema Status: Acute Assessment and plan: Stable with no evidence of flare. Current Visit: Yes (2) Hypertension Status: Chronic Assessment and plan: Labile, possible etiology for pulm edema Amlodipine, carvedilol. Will try to taper off as many as possible. Stopped Hydralazine, inspra, clonidine patch, chlorthalidone, olmesartan. Good BP control currently. Spoke with cardiology yesterday and they confirmed that changes appropriate. Current Visit: Yes (3) DM2 (diabetes mellitus, type 2) Status: Chronic Assessment and plan: Insulin Current Visit: Yes (4) CRF Status: Acute Assessment and plan: Stable Current Visit: Yes (5) Complete heart block with pacemaker Status: Acute Current Visit: Yes (6) Anemia Status: Acute Assessment and plan: No bld transfusion with rising H/H Current Visit: Yes - Time Spent With Patient Total time spent with greater than 50% in coordination of care (as documented) at patient's floor/unit and/or counseling patient: IM: PN Subjective Cardiovascular: other (Sternal chest wall pain from CPR), no chest pain Respiratory: no cough Gastrointestinal: no nausea Musculoskeletal: other (generalized weakness improving with PT) Neurological: no headache IM: PN Objective Exam - I&O/Vital Signs I&O: Intake & Output 10/11/16 10/12/16 10/12/16 21:59 05:59 13:59 Intake Total 720 750 Output Total 695 800 Balance 25 -50 Intake: Oral 720 750 Output: Urine 695 800 Other: Urine Appearance Clear Clear Urine Color Yellow Yellow Voiding Method Toilet Urinal # Voids 3 Vital Signs: Last Vital Signs Temp 36.8 C 10/12/16 06:08 Pulse 61 10/12/16 06:08 Resp 20 10/12/16 06:08 BP 124/58 10/12/16 06:08 Pulse Ox 95 10/12/16 06:08 Oxygen Flow Rate 2 Oxygen Delivery Method Room Air - Respiratory Respiratory exam: Present: chest wall tenderness (anteriorly), clear - Cardiovascular Cardiovascular exam: Present: RRR - GI/Abdominal GI/Abdominal exam: Present: soft. Absent: tenderness - Extremities Exam Extremities exam: Absent: edema - Lab Labs: Laboratory Last Values WBC 4.5 X 10^3uL (3.9-10.7) 10/11/16 07:05 RBC 3.25 X 10^6uL (4.20-6.10) L 10/11/16 07:05 Hgb 9.3 g/dL (14.0-18.0) L 10/11/16 07:05 Hct 28.5 % (42.0-54.0) L 10/11/16 07:05 MCV 87.9 fL (80.0-100.0) 10/11/16 07:05 MCH 28.6 pg (29.0-35.0) L 10/11/16 07:05 MCHC 32.5 g/dL (32.0-36.0) 10/11/16 07:05 RDW 12.4 % (11.5-14.5) 10/11/16 07:05 Plt Count 369 X 10^3uL (130-440) 10/11/16 07:05 MPV 8.6 fL (7.4-10.4) 10/11/16 07:05 Neutrophils % 64.6 % (54.0-75.0) 10/11/16 07:05 Lymphocytes % 16.6 % (20.0-40.0) L 10/11/16 07:05 Eosinophils % 5.8 % (0.0-6.0) 10/11/16 07:05 Basophils % 1.0 % (0.0-2.0) 10/11/16 07:05 Neutrophils # 2.9 X 10^3uL (2.6-6.7) 10/11/16 07:05 Lymphocytes # 0.8 X 10^3uL (0.8-3.8) 10/11/16 07:05 Monocytes 12.0 % (2.0-10.0) H 10/11/16 07:05 Monocytes # 0.5 X 10^3uL (0.2-1.0) 10/11/16 07:05 Eosinophils # 0.3 X 10^3uL (0.0-0.4) 10/11/16 07:05 Basophils # 0.0 X 10^3uL (0.0-0.1) 10/11/16 07:05 Sodium 137 mmol/L (137-145) 10/11/16 07:05 Potassium 4.4 mmol/L (3.5-5.1) 10/11/16 07:05 Chloride 96 mmol/L (98-107) L 10/11/16 07:05 Carbon Dioxide 27 mmol/L (22-30) 10/11/16 07:05 BUN 36 mg/dL (9-20) H 10/11/16 07:05 Creatinine 1.6 mg/dL (0.7-1.3) H 10/11/16 07:05 GFR Calculation Not Reportable 10/11/16 07:05 Glucose 140 mg/dL (70-100) H 10/11/16 07:05 Calcium 9.5 mg/dL (8.4-10.2) 10/11/16 07:05 Total Bilirubin 0.7 mg/dL (0.2-1.3) 10/09/16 06:00 AST 36 U/L (17-59) 10/09/16 06:00 ALT 41 U/L (21-72) 10/09/16 06:00 Alkaline Phosphatase 96 U/L (38-126) 10/09/16 06:00 Total Protein 6.1 g/dL (6.3-8.2) L 10/09/16 06:00 Albumin 3.0 g/dL (3.5-5.0) L 10/09/16 06:00 Albumin/Globulin Ratio 1.0 10/09/16 06:00 Urine Color Yellow 10/08/16 22:40 Urine Appearance Clear 10/08/16 22:40 Urine pH 6.0 (5-7) 10/08/16 22:40 Ur Specific [place] 1.015 (0.001-1.035) 10/08/16 22:40 Urine Protein 100mg/dl (2+) (NEG - TRACE) A 10/08/16 22:40 Urine Ketones Negative (NEGATIVE) 10/08/16 22:40 Urine Blood 10 alejandro/ul (1+) (NEGATIVE) A 10/08/16 22:40 Urine Nitrate Negative (NEGATIVE) 10/08/16 22:40 Urine Bilirubin Negative (NEGATIVE) 10/08/16 22:40 Urine Urobilinogen 0.2mg/dl (normal) (NEG-1mg/dL) 10/08/16 22:40 Ur Leukocyte Esterase Negative (NEGATIVE) 10/08/16 22:40 Urine RBC 0-5/hpf (0-5/hpf) 10/08/16 22:40 Urine WBC 0-4/hpf (0-4/hpf) 10/08/16 22:40 Ur Squamous Epith Cells None seen (<= 15/hpf) 10/08/16 22:40 Urine Bacteria None seen (<10/hpf) 10/08/16 22:40 Urine Mucus None seen (Up to 25%) 10/08/16 22:40 Urine Glucose 500mg/dl (2+) (NEGATIVE) A 10/08/16 22:40
[2016-10-12] MEDS: INSULIN GLARGINE,HUM.REC.ANLOG 100 UNITS/ML ML SUBCUT SCH (22:27)
[2016-10-12] MEDS: ATORVASTATIN CALCIUIM 40 MG TABLET PO SCH (22:27)
[2016-10-13 06:16] LABS: HEMATOCRIT 29.2 % (42.0-54.0); MEAN PLATELET VOLUME 9.4 fL (7.4-10.4)
[2016-10-13 06:20] LABS: BASOPHIL# 0.1 X 10^3uL (0.0-0.1); BASOPHILS 1.2 % (0.0-2.0); EOSINOPHILS 5.7 % (0.0-6.0); EOSINOPHILS# 0.3 X 10^3uL (0.0-0.4); LYMPHOCYTES 14.9 % (20.0-40.0); LYMPHOCYTES# 0.8 X 10^3uL (0.8-3.8); MEAN CELL VOLUME 87.2 fL (80.0-100.0); MEAN CORPUS. HGB CONCENTRATION 34.2 g/dL (32.0-36.0); MEAN CORPUSCULAR HEMOGLOBIN 29.9 pg (29.0-35.0); MONOCYTES 8.1 % (2.0-10.0); MONOCYTES# 0.4 X 10^3uL (0.2-1.0); NEUTROPHILS 70.1 % (54.0-75.0); NEUTROPHILS# 3.7 X 10^3uL (2.6-6.7); RED BLOOD COUNT 3.34 X 10^6uL (4.20-6.10); RED CELL DISTRIBUTION WIDTH 12.8 % (11.5-14.5); WHITE BLOOD COUNT 5.3 X 10^3uL (3.9-10.7)
[2016-10-13] MEDS: PANTOPRAZOLE 40 MG TABLET PO SCH (06:54)
[2016-10-13] MEDS: INSULIN LISPRO 100 UNIT/ML ML SUBCUT SCH (06:58)
[2016-10-13 07:06] VITALS: BP 135/60; PULSE 60; RESP 25; TEMP 98.4; O2SAT 91
[2016-10-13] MEDS: ALLOPURINOL 100 MG TAB PO SCH (08:09)
[2016-10-13] MEDS: CARVEDILOL 12.5 MG TABLET PO SCH (08:10)
[2016-10-13] MEDS: AMLODIPINE BESYLATE 5 MG TABLET PO SCH (08:11)
--- NOTE | 2016-10-13 10:44 | PROGRESS NOTE: IM APSO ---
Assessment and Plan - Date of Encounter Date of Encounter: 10/13/16 (1) Pulmonary edema Status: Acute Assessment and plan: Stable with no evidence of flare. D/C Home Current Visit: Yes (2) Hypertension Status: Chronic Assessment and plan: Labile, possible etiology for pulm edema Amlodipine, carvedilol. Stopped Hydralazine, inspra, clonidine patch, chlorthalidone, olmesartan. Good BP control currently. Current Visit: Yes (3) DM2 (diabetes mellitus, type 2) Status: Chronic Assessment and plan: Insulin Current Visit: Yes (4) CRF Status: Acute Assessment and plan: Stable Current Visit: Yes (5) Complete heart block with pacemaker Status: Acute Current Visit: Yes (6) Anemia Status: Acute Assessment and plan: No bld transfusion with rising H/H Current Visit: Yes (7) Generalized weakness Status: Acute Assessment and plan: Secondary to prolonged hospitalization PT D/C Home Current Visit: Yes - Time Spent With Patient Total time spent with greater than 50% in coordination of care (as documented) at patient's floor/unit and/or counseling patient: IM: PN Subjective Cardiovascular: other (Sternal chest wall pain from CPR), no chest pain Respiratory: no cough Gastrointestinal: no nausea Musculoskeletal: other (generalized weakness improving with PT) Neurological: no headache IM: PN Objective Exam - I&O/Vital Signs I&O: Intake & Output 10/12/16 10/13/16 10/13/16 21:59 05:59 13:59 Intake Total 920 510 Output Total 100 525 Balance 820 -15 Intake: Oral 920 510 Output: Urine 100 525 Other: Urine Appearance Clear Clear Urine Color Yellow Yellow Stool Size Moderate Stool Characteristics Formed Brown Voiding Method Toilet Toilet # Bowel Movements 1 Vital Signs: Last Vital Signs Temp 36.9 C 10/13/16 07:00 Pulse 60 10/13/16 07:00 Resp 25 H 10/13/16 07:00 BP 135/60 10/13/16 07:00 Pulse Ox 91 10/13/16 07:00 Oxygen Flow Rate 1 Oxygen Delivery Method Nasal Cannula - Respiratory Respiratory exam: Present: chest wall tenderness (anteriorly), clear - Cardiovascular Cardiovascular exam: Present: RRR - GI/Abdominal GI/Abdominal exam: Present: soft. Absent: tenderness - Extremities Exam Extremities exam: Absent: edema - Lab Labs: Laboratory Last Values WBC 5.3 X 10^3uL (3.9-10.7) 10/13/16 05:30 RBC 3.34 X 10^6uL (4.20-6.10) L 10/13/16 05:30 Hgb 10.0 g/dL (14.0-18.0) L 10/13/16 05:30 Hct 29.2 % (42.0-54.0) L 10/13/16 05:30 MCV 87.2 fL (80.0-100.0) 10/13/16 05:30 MCH 29.9 pg (29.0-35.0) 10/13/16 05:30 MCHC 34.2 g/dL (32.0-36.0) 10/13/16 05:30 RDW 12.8 % (11.5-14.5) 10/13/16 05:30 Plt Count 353 X 10^3uL (130-440) 10/13/16 05:30 MPV 9.4 fL (7.4-10.4) 10/13/16 05:30 Neutrophils % 70.1 % (54.0-75.0) 10/13/16 05:30 Lymphocytes % 14.9 % (20.0-40.0) L 10/13/16 05:30 Eosinophils % 5.7 % (0.0-6.0) 10/13/16 05:30 Basophils % 1.2 % (0.0-2.0) 10/13/16 05:30 Neutrophils # 3.7 X 10^3uL (2.6-6.7) 10/13/16 05:30 Lymphocytes # 0.8 X 10^3uL (0.8-3.8) 10/13/16 05:30 Monocytes 8.1 % (2.0-10.0) 10/13/16 05:30 Monocytes # 0.4 X 10^3uL (0.2-1.0) 10/13/16 05:30 Eosinophils # 0.3 X 10^3uL (0.0-0.4) 10/13/16 05:30 Basophils # 0.1 X 10^3uL (0.0-0.1) 10/13/16 05:30 Sodium 137 mmol/L (137-145) 10/11/16 07:05 Potassium 4.4 mmol/L (3.5-5.1) 10/11/16 07:05 Chloride 96 mmol/L (98-107) L 10/11/16 07:05 Carbon Dioxide 27 mmol/L (22-30) 10/11/16 07:05 BUN 36 mg/dL (9-20) H 10/11/16 07:05 Creatinine 1.6 mg/dL (0.7-1.3) H 10/11/16 07:05 GFR Calculation Not Reportable 10/11/16 07:05 Glucose 140 mg/dL (70-100) H 10/11/16 07:05 Calcium 9.5 mg/dL (8.4-10.2) 10/11/16 07:05 Total Bilirubin 0.7 mg/dL (0.2-1.3) 10/09/16 06:00 AST 36 U/L (17-59) 10/09/16 06:00 ALT 41 U/L (21-72) 10/09/16 06:00 Alkaline Phosphatase 96 U/L (38-126) 10/09/16 06:00 Total Protein 6.1 g/dL (6.3-8.2) L 10/09/16 06:00 Albumin 3.0 g/dL (3.5-5.0) L 10/09/16 06:00 Albumin/Globulin Ratio 1.0 10/09/16 06:00 Urine Color Yellow 10/08/16 22:40 Urine Appearance Clear 10/08/16 22:40 Urine pH 6.0 (5-7) 10/08/16 22:40 Ur Specific [place] 1.015 (0.001-1.035) 10/08/16 22:40 Urine Protein 100mg/dl (2+) (NEG - TRACE) A 10/08/16 22:40 Urine Ketones Negative (NEGATIVE) 10/08/16 22:40 Urine Blood 10 alejandro/ul (1+) (NEGATIVE) A 10/08/16 22:40 Urine Nitrate Negative (NEGATIVE) 10/08/16 22:40 Urine Bilirubin Negative (NEGATIVE) 10/08/16 22:40 Urine Urobilinogen 0.2mg/dl (normal) (NEG-1mg/dL) 10/08/16 22:40 Ur Leukocyte Esterase Negative (NEGATIVE) 10/08/16 22:40 Urine RBC 0-5/hpf (0-5/hpf) 10/08/16 22:40 Urine WBC 0-4/hpf (0-4/hpf) 10/08/16 22:40 Ur Squamous Epith Cells None seen (<= 15/hpf) 10/08/16 22:40 Urine Bacteria None seen (<10/hpf) 10/08/16 22:40 Urine Mucus None seen (Up to 25%) 10/08/16 22:40 Urine Glucose 500mg/dl (2+) (NEGATIVE) A 10/08/16 22:40
--- NOTE | 2016-10-13 13:31 | DISCHARGE SUMMARY ---
DATE OF ADMISSION TO SWING BED STATUS: 10/08/16 DATE OF DISCHARGE: 10/13/16 DIAGNOSES 1. Pulseless electrical activity (PEA) with cardiac arrest and respiratory failure. 2. Pulmonary edema. 3. Labile hypertension, felt to be most likely reason for number 1 and number 2. 4. Type 2 diabetes mellitus. 5. Chronic renal failure. 6. Complete heart block status post pacemaker. 7. Anemia. 8.Generalized weakness secondary to prolonged hospitalization. HISTORY OF PRESENT ILLNESS: This is an 81-year-old male who was brought in by [facility] on 10/08/16 into the emergency room for PEA, and survived CPR/ACLS with a single dose of epinephrine. The patient required intubation. The patient was transferred to [facility] where he was intubated for ab out 3 days, extubated and then intubated again for another 3 days before he was finally extubated. He had a prolonged hospitalization at [facility] and was eventually transferred to [facility] swing bed status for further rehabilitation, physical therapy for generalized weakness. Please see previously dictated history and physical per Dr. Draper for further details. SWING BED COURSE: The patient received extensive physical therapy and rehabilitation. By the time of discharge he was felt to be stable to return home. He will require some additional outpatient physical therapy still. During his [facility] stay, for his hypertensive crisis, he was continued on amlodipine and carvedilol and started on hydralazine, Inspra, clonidine patch, chlorthalidone and olmesartan. During his stay here with us, I stopped a lot of blood pressure medications, with continued good blood pressure with just amlodipine and carvedilol. There was no recurrence of the pulmonary edema felt to be due to the hypertensive crisis. Diabetes was controlled with insulin. His renal failure remained stable. He did have some anemia but it was found that his H&H slowly was creeping up without blood transfusion and he continued to be monitored conservatively. DISCHARGE INSTRUCTIONS: The patient may participate in activities as able. He is encouraged to ambulate at least 2 times a day and be up in a chair at least 3 times a day. He is to use his walker with ambulation. He is on a diabetic ADA, no added salt, low cholesterol diet. DISCHARGE FOLLOWUP: He will followup with Dr. García on . He will follow up with stone splitter Dr. Vallejo on 10/28/16. He will be receiving outpatient physical therapy at [facility] times 9 visits. Home health care was not felt to be warranted as the patient is not homebound. DISCHARGE MEDICATIONS Allopurinol 200 mg p.o. q.day. Amlodipine 10 mg p.o. q.day. Aspirin 81 mg one-half tablet p.o. q.day. Atorvastatin 40 mg p.o. q.day. Carvedilol 25 mg p.o. b.i.d. Vitamin D 1000 IU p.o. q.day. Levemir 24 units subcu q.h.s. Humalog/Novolog sliding scale insulin q.a.c. and q.h.s. Copy to Dr. Yoni MABRY
== END 2016-10-13 10:35 | disposition home or self-care (01) | DRG 206 ==
LOC: IN 17:34
PROVIDERS: ADMIT Family Medicine; ATTEND Family Medicine
DX: R09.02 Hypoxemia (principal); Z87.09 Personal history of other diseases of the respiratory system; J81.1 Chronic pulmonary edema; E11.22 Type 2 diabetes mellitus with diabetic chronic kidney disease; Z79.4 Long term (current) use of insulin; I12.9 Hypertensive chronic kidney disease with stage 1 through stage 4 chronic kidney disease, or unspecified chronic kidney disease; G47.00 Insomnia, unspecified; E78.5 Hyperlipidemia, unspecified; G47.33 Obstructive sleep apnea (adult) (pediatric); I50.9 Heart failure, unspecified; I65.23 Occlusion and stenosis of bilateral carotid arteries; Z85.46 Personal history of malignant neoplasm of prostate; Z95.0 Presence of cardiac pacemaker; Z79.899 Other long term (current) drug therapy
CPT/HCPCS: 36415; 80048; 80053; 81001; 85025; 94760; 94761; J1815; J2405